=== PATIENT | female | born 1985 | race Two or more races ===

== ENCOUNTER 2018-12-29 13:09 | Emergency (ER) | payer MEDICAID, OTHER ==
[~2018-12-29] VITALS: Ht 152.4 cm; Wt 52.3 kg
[2018-12-29 18:32] VITALS: BP 120/85
== END 2018-12-29 18:36 | disposition home or self-care (01) ==
LOC: ER 13:17
DX: S46.912A Strain of unspecified muscle, fascia and tendon at shoulder and upper arm level, left arm, initial encounter (principal); S40.011A Contusion of right shoulder, initial encounter; R07.89 Other chest pain; M79.602 Pain in left arm; R51 Headache; V43.62XA Car passenger injured in collision with other type car in traffic accident, initial encounter; Y93.89 Activity, other specified; Y99.8 Other external cause status; Y92.410 Unspecified street and highway as the place of occurrence of the external cause
CPT/HCPCS: 71046; 72040